=== PATIENT | male | born 1985 | race Caucasian/White ===

== ENCOUNTER 2020-09-03 11:26 | Emergency (ER) | payer OTHER ==
[2020-09-03] MEDS ORDERED: HYDROCODONE/ACETAMINOPHEN 5-325 MG TABLET PO ONE (11:37)
--- NOTE | 2020-09-03 11:39 | ER Document Report ---
ED Medical Screen (RME) - General Chief Complaint: Finger Injury Stated Complaint: FINGER INJURY Time Seen by Provider: 09/03/20 11:30 Mode of Arrival: Ambulatory Information source: Patient Notes: HPI; 35-year-old male presents to the emergency room with a injury to his right index finger. 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 Bleeding is persistent. Patient is right-handed. Tetanus is up-to-date. PE: Alert and oriented x3. Lungs: Clear to auscultation without rales, rhonchi, wheezes. Heart: Regular rate rhythm without murmurs, rubs, gallops. Positive right radial pulse. Laceration with skin avulsion noted to the distal aspect of the right index finger. Bleeding is persistent. I have greeted and performed a rapid initial assessment of this patient. A comprehensive ED assessment and evaluation of the patient, analysis of test results and completion of the medical decision making process will be conducted by additional ED providers. I have specifically instructed the patient or family members with the patient to immediately return to any nursing staff should anything change in the patient's condition or with their chief complaint. TRAVEL OUTSIDE OF THE [place] IN LAST 30 DAYS: No - Related Data Allergies/Adverse Reactions: Penicillins Allergy (Verified 10/30/12 13:04) Past Medical History Psychiatric Medical History: Reports: Hx Schizophrenia Past Surgical History: Reports: Hx Orthopedic Surgery - steel chin - Immunizations Hx Diphtheria, Pertussis, Tetanus Vaccination: No
--- NOTE | 2020-09-03 12:51 | RADIOLOGY REPORT (SQ) ---
EXAM DESCRIPTION: FINGER RIGHT IMAGES COMPLETED DATE/TIME: 09/03/2020 11:34 am REASON FOR STUDY: right index finger injury COMPARISON: None. NUMBER OF VIEWS: Three views. TECHNIQUE: AP, lateral, and oblique images acquired of the right second finger. LIMITATIONS: None. FINDINGS: MINERALIZATION: Normal. BONES: No acute fracture or dislocation. No worrisome bone lesions. SOFT TISSUES: Laceration distal tip 2nd digit. No radiopaque foreign body. OTHER: No other significant finding. IMPRESSION: Laceration distal 2nd digit. No underlying radiopaque foreign body or fracture. COMMENT: SITE OF TRAUMA/COMPLAINT MARKED/STAMP COMPLETED: NA TECHNICAL DOCUMENTATION: JOB ID: [id number] 2010 [employer]- All Rights Reserved Reading location - IP/workstation name: [email or web address]
[2020-09-03] MEDS ORDERED: LIDOCAINE 1% INJ (10 MG/ML) 10 ML MDV INJ ONE (14:39)
--- NOTE | 2020-09-03 15:50 | ER Document Report ---
ED Hand/Wrist Injury - General Chief Complaint: Finger Injury Stated Complaint: FINGER INJURY Time Seen by Provider: 09/03/20 11:30 Primary Care Provider: RICK SULLIVAN [Primary Care Provider] - Follow up as needed Mode of Arrival: Ambulatory Information source: Patient TRAVEL OUTSIDE OF THE [place] IN LAST 30 DAYS: No - HPI Patient complains to provider of: finger laceration Injury to: Index finger Notes: Patient here with complaints of right index finger laceration. 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 Tetanus is up-to-date. Bleeding is controlled with pressure. Does complain of a lot of pain. He denies any numbness or tingling. No blood thinning medications. He denies any other injuries. No fever. No nausea, vomiting, diarrhea. No chest pain or shortness of breath. No abdominal pain. He denies any other specific complaints at this time. Pain is constant, moderate to severe, worse when it uncovered, better with the [place] that he received here earlier. - Related Data Allergies/Adverse Reactions: Penicillins Allergy (Verified 09/03/20 12:27) Past Medical History - General Information source: Patient - Social History Smoking Status: Unknown if Ever Smoked Frequency of alcohol use: None Drug Abuse: None Family History: Reviewed & Not Pertinent Patient has homicidal ideation: No Psychiatric Medical History: Reports: Hx Schizophrenia Past Surgical History: Reports: Hx Orthopedic Surgery - steel chin - Immunizations Hx Diphtheria, Pertussis, Tetanus Vaccination: No Review of Systems - Review of Systems -: Yes All other systems reviewed and negative Physical Exam - Vital signs Vitals: Temp Pulse Resp BP Pulse Ox 98.4 F 92 20 128/91 H 100 09/03/20 11:53 09/03/20 11:53 09/03/20 11:53 09/03/20 11:53 09/03/20 11:53 - Notes Notes: GENERAL: alert, cooperative, nontoxic, no distress. HEAD: normocephalic, atraumatic EYES: conjunctiva pink without discharge, no external redness or swelling. EARS: no external swelling, no external redness NOSE: atraumatic, no external swelling MOUTH/THROAT: mucous membranes moist and pink NECK: soft, supple, full range of motion, no meningismus. CHEST: no distress, lungs clear and equal throughout. No wheezing, rales, rhonchi. CARDIAC: regular rate and rhythm, no murmur EXTREMITIES: full range of motion of all extremities. No redness, no swelling. 3-1/2 cm near complete flap laceration to the tip of the right index finger involving just the corner of the distal fingernail. Bleeding is controlled. The flap is white and discolored. No surrounding redness or drainage. Normal cap refill and sensation. Full range of motion. No foreign body. NEURO: alert and oriented 3, no focal deficits, full range of motion of all extremities. PYSCH: appropriate mood, affect. Patient is cooperative. SKIN: pink, warm, dry, no rash. Course - Re-evaluation Re-evalutation: 09/03/20 15:47 Patient resting comfortably at this time. Suture repair has been completed. Questions been answered. Will discharge home. Patient is nontoxic-appearing stable vitals. Here with complaints of right index finger laceration. 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 Tetanus is up-to-date. There is no active bleeding. No foreign body. X-ray was negative for acute fracture or foreign body. Patient was given [place] with some improvement of his pain here in the emergency department. Laceration was repaired. A sterile dressing was applied. Patient tolerated this well. Patient was given wound care instructions will be discharged home with instructions for follow-up. Is i nstructed to clean the wound twice a day with soap and water. Follow-up in 10 to 12 days for suture removal. He will be given hand referral if he requires this. He will be sent home with Keflex and a small supply of pain medication as well. He instructed to follow-up sooner if he develops worsening pain, fever, redness, drainage, numbness, tingling, weakness, any further concerns. The patient's emergency department workup and current diagnosis were explained to the patient and or family. Follow-up instructions were provided. Medications if prescribed were discussed. Instructions for when to return to the emergency department including specific worrisome symptoms were discussed with the patient and/or family. - Vital Signs Vital signs: Temp Pulse Resp BP Pulse Ox 98.4 F 92 20 128/91 H 100 09/03/20 11:53 09/03/20 11:53 09/03/20 11:53 09/03/20 11:53 09/03/20 11:53 - Laboratory Results Critical Laboratory Results Reviewed: No Critical Results - Radiology Results Critical Radiology Results Reviewed: No Critical Results Procedures - Laceration/Wound Repair Right Finger 2nd digit Wound length (cm): 4 Wound's Depth, Shape: Irregular, Flap, Other - Partially through the distal nail Laceration pre-procedure: Sterile PPE donned, Sterile drapes applied, Shur-Clens applied Anesthetic type: 1% Lidocaine Wound explored: Clean, No foreign body removed Wound Debrided: Small piece of nail removed. Wound Repaired With: Sutures Suture Size/Type: 5:0, Ethilon Number of Sutures: 8 Layer Closure?: No Post-procedure wound care: Sterile dressing applied Post-procedure NV exam normal: Yes Complications: No Discharge - Discharge Clinical Impression: Laceration of right index finger with damage to nail Qualifiers: Encounter type: initial encounter Foreign body presence: without foreign body Qualified Code(s): S61.310A - Laceration without foreign body of right index finger with damage to nail, initial encounter Condition: Stable Disposition: HOME, SELF-CARE Instructions: Oral Narcotic Medication ([facility]), Soap Cleansing ([facility]), Laceration Care ([facility]) Additional Instructions: Clean wound twice a day with soap and water. Follow-up in 10 to 12 days for suture removal. Follow-up sooner for worsening pain, fever, redness, drainage, numbness, tingling, weakness, any further concerns. Prescriptions: Cephalexin Monohydrate [Keflex 500 mg Capsule] 500 mg PO Q6H 5 Days capsule Hydrocodone/Acetaminophen [[place] 5-325 mg Tablet] 2 tab PO Q6H PRN #8 tab PRN Reason: Referrals: ELLIOT TYLER DO [ACTIVE STAFF] - Follow up as needed
[2020-09-03 16:18] VITALS: BP 115/76
== END 2020-09-03 16:19 | disposition home or self-care (01) ==
LOC: ER 11:26
DX: S61.210A Laceration without foreign body of right index finger without damage to nail, initial encounter (principal); W27.4XXA Contact with kitchen utensil, initial encounter; Y99.0 Civilian activity done for income or pay; Z88.0 Allergy status to penicillin
CPT/HCPCS: 99284